=== PATIENT | female | born 1950 | race Caucasian/White ===

== ENCOUNTER 2017-08-25 16:10 | Emergency (ER) | payer OTHER ==
[2017-08-25] MEDS ORDERED: ONDANSETRON 4 MG/2 ML VIAL IVP ONE (17:05)
[2017-08-25] MEDS ORDERED: NS 1,000 ML IV ONE (17:05)
--- NOTE | 2017-08-25 17:12 | EDPHY ---
H & P Time Seen by Provider: 08/25/17 16:32 HPI/ROS: Chief complaint. Wants alcohol detox HPI. 67-year-old female presents emergency department requesting alcohol detox. She has been drinking for the last 2-4 weeks. Her last drink was at 3: 30 a.m. this afternoon. There were no medical issues or injuries causing her to want to stop drinking today. She feels that it is just time. She has a history of alcoholism. Previously when she has withdrawn from alcohol she has vomited. Her sister from alcohol poisoning or withdrawal. The patient has decreased appetite for the last several days. No abdominal pain. No chest discomfort or trouble breathing. No fever. ROS Constitutional. no fever/chills, no weakness Eyes. no problems with vision ENT. no sore throat, no nasal drainage Cardiovascular. no chest pain Respiratory. no shortness of breath, no cough Abdominal. Vomiting but no abdominal pain . no problems urinating MS. no calf pain/swelling, no neck/back pain, no joint pain Skin. no rash Lymph. no swollen glands Neuro. no headache, no dizziness, no difficulty walking or with speech Past Medical/Surgical History: Past medical history anemia, coronary artery disease, thymectomy, sleep disorder , [place] macroglobulinemia, chronic pain Social History: Single, nonsmoker, recent alcohol Smoking Status: Former smoker Physical Exam: General Appearance: Alert well-developed female mild distress. Vital signs significant for heart rate 108. Initial O2 saturation 88% on room air Eyes: Pupils equal and round no pallor or injection. ENT, Mouth: Mucous membranes are moist. Respiratory: There are no retractions, lungs are clear to auscultation. Cardiovascular: Regular rate and rhythm. Gastrointestinal: Abdomen is soft and nontender, no masses, bowel sounds normal. Neurological: Awake and alert, sensory and motor exams grossly normal. Skin: Warm and dry, no rashes. Musculoskeletal: Neck is supple nontender. Extremities symmetrical, full range of motion. Psychiatric: Patient is oriented X 3, there is no agitation. Constitutional: Initial Vital Signs Temperature (C) 37.0 C 08/25/17 16:17 Heart Rate 108 H 08/25/17 16:17 Respiratory Rate 18 08/25/17 16:17 Blood Pressure 131/83 H 08/25/17 16:17 O2 Sat (%) 88 L 08/25/17 16:17 O2 Delivery Mode Room Air Allergies/Adverse Reactions: Sulfa (Sulfonamide Antibiotics) Allergy (Intermediate, Verified 11/25/15 16:09) BLISTERS AND FLU LIKE SX prednisone [Prednisone] Allergy (Mild, Verified 11/25/15 16:09) FLU SX Home Medications: Medication Instructions Recorded Gabapentin 09/20/11 oxyCODONE IR [Oxycodone Ir (RX)] 5 - 10 mg PO 11/05/14 Ambien 11/20/15 Estradiol Transdermal Patch 11/03/16 Herbals/Supplements -Info Only 11/03/16 Lorazepam 11/03/16 Ms Contin 11/03/16 Soma 11/03/16 Progesterone 08/25/17 Medical Decision Making Procedures: IV normal saline. Alexis for nausea sow farm manager Fabienne will see the patient and discuss treatment options ED Course/Re-evaluation: On re-evaluation patient is stable. She and I discussed laboratory evaluation and treatment plan. The patient was given resources by patient wrap and the patient has been accepted for admission for medical detox in the [address] The patient agrees to this admission. She will be taken over by a non intoxicated friend. She is given Librium by mouth prior to discharge. I spoke to the medical detox intake and confirm that the patient has been accepted for admission Differential Diagnosis: Alcohol intoxication and patient is requesting medical detoxification. I considered electrolyte abnormality is an infection as well as pancreatitis. Tox screen also shows opiates and the patient has chronic pain and chronic opiate use - Data Points Laboratory Results: Laboratory Results 08/25/17 17:15 08/25/17 17:15 08/25/17 08/25/17 08/25/17 17:15 17:15 13:46 WBC 5.58 10^3/uL 10^3/uL (3.80-9.50) RBC 4.72 10^6/uL 10^6/uL (4.18-5.33) Hgb 15.1 g/dL g/dL (12.6-16.3) Hct 45.2 % % (38.0-47.0) MCV 95.8 fL fL (81.5-99.8) MCH 32.0 pg pg (27.9-34.1) MCHC 33.4 g/dL g/dL (32.4-36.7) RDW 13.0 % % (11.5-15.2) Plt Count 247 10^3/uL 10^3/uL (150-400) MPV 9.0 fL fL (8.7-11.7) Neut % (Auto) 63.5 % % (39.3-74.2) Lymph % (Auto) 23.8 % % (15.0-45.0) Love % (Auto) 11.1 % % (4.5-13.0) Eos % (Auto) 0.5 % L % (0.6-7.6) Baso % (Auto) 0.7 % % (0.3-1.7) Nucleat RBC Rel Count 0.0 % % (0.0-0.2) Absolute Neuts (auto) 3.54 10^3/uL 10^3/uL (1.70-6.50) Absolute Lymphs (auto) 1.33 10^3/uL 10^3/uL (1.00-3.00) Absolute Monos (auto) 0.62 10^3/uL 10^3/uL (0.30-0.80) Absolute Eos (auto) 0.03 10^3/uL 10^3/uL (0.03-0.40) Absolute Basos (auto) 0.04 10^3/uL 10^3/uL (0.02-0.10) Absolute Nucleated RBC 0.00 10^3/uL 10^3/uL (0-0.01) Immature Gran % 0.4 % % (0.0-1.1) Immature Gran # 0.02 10^3/uL 10^3/uL (0.00-0.10) Sodium 139 mEq/L mEq/L (134-144) Potassium 3.6 mEq/L mEq/L (3.5-5.2) Chloride 92 mEq/L L mEq/L (97-110) Carbon Dioxide 29 mEq/l mEq/l (22-31) Anion Gap 18 mEq/L H mEq/L (8-16) BUN 7 mg/dL mg/dL (7-23) Creatinine 0.6 mg/dL mg/dL (0.6-1.0) Estimated GFR > 60 Glucose 98 mg/dL mg/dL (70-100) Calcium 9.7 mg/dL mg/dL (8.5-10.4) Total Bilirubin 1.7 mg/dL H mg/dL (0.1-1.4) Conjugated Bilirubin 0.5 mg/dL mg/dL (0.0-0.5) Unconjugated Bilirubin 1.2 mg/dL H mg/dL (0.0-1.1) AST 81 IU/L H IU/L (14-46) ALT 38 IU/L IU/L (9-52) Alkaline Phosphatase 81 IU/L IU/L (38-126) Total Protein 8.9 g/dL H g/dL (6.3-8.2) Albumin 4.6 g/dL g/dL (3.5-5.0) Lipase 65 IU/L IU/L (23-300) Urine Opiates Screen NON-NEGATIVE H (NEGATIVE) Urine Barbiturates NEGATIVE (NEGATIVE) Ur Phencyclidine Scrn NEGATIVE (NEGATIVE) Ur Amphetamine Screen NEGATIVE (NEGATIVE) U Benzodiazepines Scrn NEGATIVE (NEGATIVE) Urine Cocaine Screen NEGATIVE (NEGATIVE) U Marijuana (THC) Screen NON-NEGATIVE H (NEGATIVE) Ethyl Alcohol 163 mg/dL H mg/dL (0-10) Medications Given: Discontinued Medications Sodium Chloride (Ns) 1,000 mls @ 0 mls/hr IV EDNOW ONE; Wide Open PRN Reason: Protocol Stop: 08/25/17 17:06 Last Admin: 08/25/17 17:23 Dose: 1,000 mls Ondansetron HCl (Zofran) 4 mg IVP EDNOW ONE Stop: 08/25/17 17:06 Last Admin: 08/25/17 17:23 Dose: 4 mg Departure - Departure Disposition: Home, Routine, Self-Care Clinical Impression: Alcoholic intoxication Qualifiers: Complication of substance-induced condition: uncomplicated Qualified Code(s): F10.920 - Alcohol use, unspecified with intoxication, uncomplicated Condition: Good Instructions: Alcohol Dependence (ED) Additional Instructions: Go to the medical detox unit at [address] [place] [id number] for admission. Return sooner for worsening problems. Referrals: NONE *PRIMARY CARE P,. [Primary Care Provider] - As per Instructions
[2017-08-25 17:24] LABS: % IMMATURE GRANULYOCYTES 0.4 % (0.0-1.1); ABSOLUTE IMMATURE GRANULOCYTES 0.02 10^3/uL (0.00-0.10); ADD DIFF? NO; ADD MORPH? NO; ADD SCAN? NO; ATYPICAL LYMPHOCYTE FLAG 10 (0-99); FRAGMENT RBC FLAG 0 (0-99); HEMATOCRIT 45.2 % (38.0-47.0); HEMOGLOBIN 15.1 g/dL (12.6-16.3); LEFT SHIFT FLG 0 (0-99); LIPEMIA HEMOLYSIS FLAG 80 (0-99); MEAN CELL HEMOGLOBIN CONCENTR. 33.4 g/dL (32.4-36.7); MEAN CELL VOLUME 95.8 fL (81.5-99.8); PLATELET CLUMPS FLAG 0 (0-99); PLATELET COUNT 247 10^3/uL (150-400); RED BLOOD CELL COUNT 4.72 10^6/uL (4.18-5.33)
[2017-08-25 17:40] LABS: ALANINE AMINOTRANSFERASE 38 IU/L (9-52); ALBUMIN 4.6 g/dL (3.5-5.0); ALKALINE PHOSPHATASE 81 IU/L (38-126); ANION GAP 18 mEq/L (8-16); ASPARTATE AMINOTRANSFERASE 81 IU/L (14-46); BILIRUBIN,TOTAL 1.7 mg/dL (0.1-1.4); BILIRUBIN-CONJUGATED 0.5 mg/dL (0.0-0.5); BILIRUBIN-UNCONJUGATED 1.2 mg/dL (0.0-1.1); CALCIUM 9.7 mg/dL (8.5-10.4); CARBON DIOXIDE 29 mEq/l (22-31); CHLORIDE 92 mEq/L (97-110); CREATININE 0.6 mg/dL (0.6-1.0); ETHANOL SERUM 163 mg/dL (0-10); GLOMERULAR FILTRATION RATE > 60; GLUCOSE 98 mg/dL (70-100); POTASSIUM 3.6 mEq/L (3.5-5.2); SODIUM 139 mEq/L (134-144); TOTAL PROTEIN 8.9 g/dL (6.3-8.2)
[2017-08-25] MEDS ORDERED: chlordiazePOXIDE 25 MG CAP PO ONE (18:55)
[2017-08-25 19:28] VITALS: BP 132/85; PULSE 93; RESP 20; TEMP 99.1; O2SAT 92
--- NOTE | 2017-08-26 09:40 | ASMTCMCOM ---
CM Note CM Note Notes: CM late entry: Met with patient shortly after arrival to ER. Patient requesting resources for medical detox from alcohol. I provided patient with several options to consider, explaining the process of reaching out to facilities to determine which may be the best fit for her. Patient decided on [facility] ([facility]) and their new medical detox program. Patient contacted their intake office and they were able to accept patient. I have spoken with [place] to confirm admission. Dr. Vazquez and Huey COLLINS updated on plan. RN to call [facility] with report when patient leaves the ER. Patient is accompanied by her sober friend Kody who is willing/able to take patient to detox when she is D/C from the ER Date Signed: 08/26/2017 09:40 AM Electronically Signed By:Fabienne Montana RN
== END 2017-08-25 19:30 | disposition home or self-care (01) ==
LOC: EEVIPCON 16:10
DX: F10.920 Alcohol use, unspecified with intoxication, uncomplicated (principal); I25.10 Atherosclerotic heart disease of native coronary artery without angina pectoris; E86.9 Volume depletion, unspecified; Z87.891 Personal history of nicotine dependence
CPT/HCPCS: 80305; 96374; G0480; J2405

== ENCOUNTER → 2017-11-12 | Outpatient (CLI) | payer OTHER | LOC: FIMAGING 08:28 | DX: S83.242A Other tear of medial meniscus, current injury, left knee, initial encounter (principal); M94.8X6 Other specified disorders of cartilage, lower leg; M71.22 Synovial cyst of popliteal space [Baker], left knee ==

== ENCOUNTER 2018-02-28 15:26 | Inpatient (IN) | payer OTHER ==
--- NOTE | 2018-02-28 15:28 | EDPHY ---
H & P Time Seen by Provider: 02/28/18 15:27 HPI/ROS: CHIEF COMPLAINT: Anxiety, alcohol intoxication/dependence HISTORY OF PRESENT ILLNESS: The patient presents the ED with symptoms of anxiety in the setting alcohol dependence and recent alcohol use. The patient is interested in getting resources regarding outpatient detox facilities. The patient was admitted to [facility] in August of 2017. The patient denies any suicidal or homicidal ideation. The patient does report mild dyspnea. She reports her last drink was immediately prior to arrival. The patient is brought by ambulance. She denies any acute abdominal pain, chest pain, fever or vomiting. REVIEW OF SYSTEMS: A comprehensive 10 point review of systems is otherwise negative aside from elements mentioned in the history of present illness. Source: Patient Exam Limitations: No limitations - Medical/Surgical History Hx Asthma: No Hx Chronic Respiratory Disease: Yes Hx Diabetes: No Hx Cardiac Disease: No Hx Renal Disease: No Hx Cirrhosis: No Hx Alcoholism: No Hx HIV/AIDS: No Hx Splenectomy or Spleen Trauma: No Other PMH: anemia, high amount of calcium in arteries, thymectomy, sleep disorder, waldenstrom's macroglobulinemia. chronic pain - Social History Smoking Status: Former smoker - Physical Exam Exam: General Appearance: Alert, no distress Eyes: Pupils equal and round no pallor or injection ENT, Mouth: Mucous membranes moist Respiratory: There are no retractions, lungs are clear to auscultation Cardiovascular: Regular rate and rhythm Gastrointestinal: Abdomen is soft and nontender, no masses, bowel sounds normal Neurological: A&O, normal motor function, normal sensory exam, normal cranial nerves Skin: Warm and dry, no rashes Musculoskeletal: Neck is supple nontender Extremities: symmetrical, full range of motion Constitutional: Initial Vital Signs Temperature (C) 36.7 C 02/28/18 15:27 Heart Rate 84 02/28/18 15:27 Respiratory Rate 16 02/28/18 15:27 Blood Pressure 133/88 H 02/28/18 15:27 O2 Sat (%) 98 02/28/18 15:27 O2 Delivery Mode Room Air O2 (L/minute) 2 Allergies/Adverse Reactions: Sulfa (Sulfonamide Antibiotics) Allergy (Intermediate, Verified 11/25/15 16:09) BLISTERS AND FLU LIKE SX prednisone [Prednisone] Allergy (Mild, Verified 11/25/15 16:09) FLU SX Home Medications: Medication Instructions Recorded Gabapentin 09/20/11 Ambien HS 11/20/15 Estradiol Transdermal Patch Q3D 11/03/16 Lorazepam PO PRN 11/03/16 Progesterone Q3D 08/25/17 Herbal Drugs DAILY 10/10/17 Morphine Er QID PRN 10/10/17 VITAMIN B COMPLEX DAILY 10/10/17 Medical Decision Making - Diagnostics EKG Interpretation: EKG: Complete interpretation has been separately recorded in the [place] archive. Summary impression: Sinus rhythm, rate 82 Imaging Results: Imaging Impressions Chest X-Ray 02/28/18 18:22 Impression: Poor inspiration. Nothing acute identified in this post CABG patient. Imaging: Discussed imaging studies w/ call center assistant Radiologist ED Course/Re-evaluation: The patient presents the emergency department with alcohol intoxication/ dependence with mild anxiety. She was given 1 mg of IV Ativan. The patient's EKG demonstrates no evidence of ischemia. I reviewed her past medical records including her ED visit from August 2017. The patient does not meet criteria for an M1 psychiatric hold. At her request I did contact [facility] who has informed me they are not open new patients for the next 2 weeks secondary to ongoing licensing issues. I re-evaluated the patient at 6:30 p.m.. I am informed by nursing staff that she was found taking her narcotic pain medications. She did developed some hypoxemia and require supplemental oxygen. The patient has refused going to the [facility]. Differential Diagnosis: Differential diagnosis considered includes alcohol intoxication, anxiety, arrhythmia, dehydration, metabolic abnormality - Data Points Laboratory Results: Laboratory Results 02/28/18 15:38 02/28/18 15:38 02/28/18 02/28/18 15:38 15:38 WBC 6.78 10^3/uL 10^3/uL (3.80-9.50) RBC 4.76 10^6/uL 10^6/uL (4.18-5.33) Hgb 15.8 g/dL g/dL (12.6-16.3) Hct 47.2 % H % (38.0-47.0) MCV 99.2 fL fL (81.5-99.8) MCH 33.2 pg pg (27.9-34.1) MCHC 33.5 g/dL g/dL (32.4-36.7) RDW 12.7 % % (11.5-15.2) Plt Count 235 10^3/uL 10^3/uL (150-400) MPV 9.2 fL fL (8.7-11.7) Neut % (Auto) 35.2 % L % (39.3-74.2) Lymph % (Auto) 54.1 % H % (15.0-45.0) [place] % (Auto) 9.1 % % (4.5-13.0) Eos % (Auto) 0.1 % L % (0.6-7.6) Baso % (Auto) 1.2 % % (0.3-1.7) Nucleat RBC Rel Count 0.0 % % (0.0-0.2) Absolute Neuts (auto) 2.38 10^3/uL 10^3/uL (1.70-6.50) Absolute Lymphs (auto) 3.67 10^3/uL H 10^3/uL (1.00-3.00) Absolute Monos (auto) 0.62 10^3/uL 10^3/uL (0.30-0.80) Absolute Eos (auto) 0.01 10^3/uL L 10^3/uL (0.03-0.40) Absolute Basos (auto) 0.08 10^3/uL 10^3/uL (0.02-0.10) Absolute Nucleated RBC 0.00 10^3/uL 10^3/uL (0-0.01) Immature Gran % 0.3 % % (0.0-1.1) Immature Gran # 0.02 10^3/uL 10^3/uL (0.00-0.10) Sodium 143 mEq/L mEq/L (135-145) Potassium 3.6 mEq/L mEq/L (3.5-5.2) Chloride 92 mEq/L L mEq/L (97-110) Carbon Dioxide 28 mEq/l mEq/l (22-31) Anion Gap 23 mEq/L H mEq/L (8-16) BUN 9 mg/dL mg/dL (7-23) Creatinine 0.7 mg/dL mg/dL (0.6-1.0) Estimated GFR > 60 Glucose 88 mg/dL mg/dL (70-100) Calcium 9.1 mg/dL mg/dL (8.5-10.4) Ethyl Alcohol 295 mg/dL H mg/dL (0-10) Medications Given: Discontinued Medications Lorazepam (Ativan Injection) 1 mg IVP EDNOW ONE Stop: 02/28/18 15:41 Last Admin: 02/28/18 15:48 Dose: 1 mg Departure - Departure Disposition: [facility] Clinical Impression: Alcoholic intoxication, Alcohol dependence, Hypoxemia Condition: Good
[2018-02-28] MEDS ORDERED: LORazepam 2 MG/ML INJ IVP ONE ×2 (15:40→20:41)
[2018-02-28 15:47] LABS: PLATELET COUNT 235 10^3/uL (150-400)
--- NOTE | 2018-02-28 15:50 | CPEKG ---
Heart Rate: 82 RR Interval: 732 P-R Interval: 173 QRSD Interval: 74 QT Interval: 388 QTC Interval: 453 P [place]: -3 QRS [place]: -22 T Wave [place]: 41 EKG Severity - OTHERWISE NORMAL ECG - EKG Impression: SINUS RHYTHM EKG Impression: BORDERLINE LEFT AXIS DEVIATION Electronically Signed By: Rufus Schneider 28-Feb-2018 18:53:50
[2018-02-28] MEDS ORDERED: ALBUTEROL 3 ML DEYVIAL IH ONE (20:43)
--- NOTE | 2018-02-28 21:03 | PDGENHP ---
History and Physical - Chief Complaint SOB - History of Present Illness 67 yo female with hx of ETOH dependency p/w with acute ETOH complaining of SOB x several days. She is a very poor historian and has provided different reports to me and the E.D. physician. She is telling me that she has felt very SOB x about one day. She denies fever, cough, chest pain. She is very anxious. She is requesting her pain meds. In the E.D. she requested resources for detox. She requested transfer to [facility]. A CXR was non revealing. She was noted be on RA. She was given Ativan and then was found to take some of her own chronic pain meds which she had with her and became hypoxic. Given her confusion, intoxication, and hypoxemia, she was felt unsafe to go home. She does not have a resting tremor. Other than hypoxemia, her VS are stable. She is very anxious. She denies abd pain, N/V/D PMH: anemia, high amount of calcium in arteries, thymectomy, sleep disorder, waldenstrom's macroglobulinemia. chronic pain, ETOH dependency PSHX: CABG SocHx: Former smoker, ETOH FmHx: NC Data: No leukocytosis CXR with no focal infiltrates, no e/o volume overload EKG with no acute ischemic changes History Information - Allergies/Home Medication List Allergies/Adverse Reactions: Sulfa (Sulfonamide Antibiotics) Allergy (Intermediate, Verified 11/25/15 16:09) BLISTERS AND FLU LIKE SX prednisone [Prednisone] Allergy (Mild, Verified 11/25/15 16:09) FLU SX Home Medications: Escitalopram Oxalate [Lexapro] 10 mg PO DAILY 02/28/18 [Last Taken 02/28/18] Estradiol [Vivelle-Dot 0.0375MG (*)] 0.0375 mg TD Q3D 02/28/18 [Last Taken 2 Weeks Ago ~02/14/18] Gabapentin [Neurontin 300 MG (*)] 600 mg PO HS 02/28/18 [Last Taken 02/27/18] Herbals/Supplements -Info Only 1 ea PO DAILY 02/28/18 [Last Taken 02/28/18] Morphine Sulfate [Morphine Sulfate ER] 15 mg PO HS 02/28/18 [Last Taken 02/27/18 ] Ondansetron Odt [Zofran Odt 4 mg (*)] 4 mg PO TID PRN 02/28/18 [Last Taken 02/27] Progesterone, Micronized [Progesterone] 100 mg PO HS 02/28/18 [Last Taken 17:00] ZOLPIDEM TARTRATE [Ambien CR 12.5 mg] 12.5 mg PO HS 02/28/18 [Last Taken ] oxyCODONE IR [Oxycodone Ir (*)] 10 mg PO TID PRN 02/28/18 [Last Taken 02/28/18 09:00] I have personally reviewed and updated: medical history, social history - Social History Smoking Status: Former smoker Review of Systems Review of Systems: ROS: 10pt was reviewed & negative except for what was stated in HPI & below Physical Exam Physical Exam: Temp Pulse Resp BP Pulse Ox 36.7 C 87 18 120/82 H 98 02/28/18 15:27 02/28/18 19:46 02/28/18 19:46 02/28/18 19:46 02/28/18 19:46 O2 (L/minute) 2 Constitutional: other (anxious), No no apparent distress Eyes: PERRL, EOMI Ears, Nose, Mouth, Throat: moist mucous membranes, hearing normal Cardiovascular: regular rate and rhythym, No JVD, No edema Respiratory: reduced air movement, respiratory distress, No no respiratory distress, No expiratory wheeze Gastrointestinal: normoactive bowel sounds, soft, non-tender abdomen Skin: warm Neurologic: No AAOx3 Psychiatric: anxious, No interacting appropriately Lymph, Heme, Immunologic: No petechiae Lab Data & Imaging Review 02/28/18 15:38 02/28/18 15:38 WBC 6.78 10^3/uL (3.80-9.50) 02/28/18 15:38 RBC 4.76 10^6/uL (4.18-5.33) 02/28/18 15:38 Hgb 15.8 g/dL (12.6-16.3) 02/28/18 15:38 Hct 47.2 % (38.0-47.0) H 02/28/18 15:38 MCV 99.2 fL (81.5-99.8) 02/28/18 15:38 MCH 33.2 pg (27.9-34.1) 02/28/18 15:38 MCHC 33.5 g/dL (32.4-36.7) 02/28/18 15:38 RDW 12.7 % (11.5-15.2) 02/28/18 15:38 Plt Count 235 10^3/uL (150-400) 02/28/18 15:38 MPV 9.2 fL (8.7-11.7) 02/28/18 15:38 Neut % (Auto) 35.2 % (39.3-74.2) L 02/28/18 15:38 Lymph % (Auto) 54.1 % (15.0-45.0) H 02/28/18 15:38 [place] % (Auto) 9.1 % (4.5-13.0) 02/28/18 15:38 Eos % (Auto) 0.1 % (0.6-7.6) L 02/28/18 15:38 Baso % (Auto) 1.2 % (0.3-1.7) 02/28/18 15:38 Nucleat RBC Rel Count 0.0 % (0.0-0.2) 02/28/18 15:38 Absolute Neuts (auto) 2.38 10^3/uL (1.70-6.50) 02/28/18 15:38 Absolute Lymphs (auto) 3.67 10^3/uL (1.00-3.00) H 02/28/18 15:38 Absolute Monos (auto) 0.62 10^3/uL (0.30-0.80) 02/28/18 15:38 Absolute Eos (auto) 0.01 10^3/uL (0.03-0.40) L 02/28/18 15:38 Absolute Basos (auto) 0.08 10^3/uL (0.02-0.10) 02/28/18 15:38 Absolute Nucleated RBC 0.00 10^3/uL (0-0.01) 02/28/18 15:38 Immature Gran % 0.3 % (0.0-1.1) 02/28/18 15:38 Immature Gran # 0.02 10^3/uL (0.00-0.10) 02/28/18 15:38 Sodium 143 mEq/L (135-145) 02/28/18 15:38 Potassium 3.6 mEq/L (3.5-5.2) 02/28/18 15:38 Chloride 92 mEq/L (97-110) L 02/28/18 15:38 Carbon Dioxide 28 mEq/l (22-31) 02/28/18 15:38 Anion Gap 23 mEq/L (8-16) H 02/28/18 15:38 BUN 9 mg/dL (7-23) 02/28/18 15:38 Creatinine 0.7 mg/dL (0.6-1.0) 02/28/18 15:38 Estimated GFR > 60 02/28/18 15:38 Glucose 88 mg/dL (70-100) 02/28/18 15:38 Calcium 9.1 mg/dL (8.5-10.4) 02/28/18 15:38 Ethyl Alcohol 295 mg/dL (0-10) H 02/28/18 15:38 Assessment & Plan Assessment: #Alcohol dependence (Acute) #Alcoholic intoxication (Acute) #Hypoxemia (Acute) #Agitation #chronic pain syndrome #Encephalopathy #Hx of CABG Given her current conditions, its very difficult to figure out what her underlying problem is. Currently her main c/o is resp and feeling that she cant breath. I will order a nebulizer treatment. Pending response I will consider scheduling and starting steroids. I dont see e/o infiltrate on CXR nor do I see e/o cardiac failure. I will check a D-Dimer and if elevated will check a CTA of the chest. She is very anxious and is likely working herself up. Although she is acutely intoxicated, I will give her a small amount of Ativan to assist with her severe anxiety. I do not think she is actively WD given her ETOH level. She does not have any cp and EKG is reassuring. I do not have any evidence to suggest ischemia or cardiac etiology I will hold her narcotics pain meds. These can be restarted once she begins clearing. I am also holding Ativan. She tells me that she is in pain but cannot verbalize where her pain is SCD's.
[2018-02-28] MEDS ORDERED: ACETAMINOPHEN 325 MG TAB PO PRN (21:12)
[2018-02-28] MEDS ORDERED: ONDANSETRON DISINTEGRATING 4 MG TAB PO PRN (21:12)
[2018-02-28] MEDS ORDERED: ONDANSETRON 4 MG/2 ML VIAL IVP PRN (21:12)
[2018-02-28] MEDS ORDERED: ALBUTEROL 3 ML DEYVIAL IH PRN (21:14)
[2018-02-28] MEDS: GABAPENTIN 300 MG CAP PO SCH (21:53)
[2018-02-28] MEDS: PROGESTERONE,MICR 100 MG CAP PO SCH (21:54)
[2018-02-28] MEDS: NS 1,000 ML IV SCH (22:01)
[2018-02-28] MEDS: ONDANSETRON DISINTEGRATING 4 MG TAB PO PRN (23:08)
[2018-03-01] MEDS: oxyCODONE IR 5 MG TAB PO PRN ×4 (00:49→20:38)
[2018-03-01] MEDS: LORazepam 2 MG/ML INJ IVP PRN ×7 (01:25→20:39)
[2018-03-01] MEDS: ONDANSETRON DISINTEGRATING 4 MG TAB PO PRN ×2 (04:12→18:24)
[2018-03-01] MEDS: ALBUTEROL 3 ML DEYVIAL IH SCH ×2 (05:21→11:16)
[2018-03-01 05:24] LABS: PLATELET COUNT 131 10^3/uL (150-400)
[2018-03-01] MEDS: FOLIC ACID 1 MG TAB PO SCH (08:04)
[2018-03-01] MEDS: MULTIVITAMINS 1 EACH TAB PO SCH (08:04)
[2018-03-01] MEDS: ESCITALOPRAM OXALATE 10 MG TAB PO SCH (08:07)
[2018-03-01] MEDS ORDERED: Herbals/Supplements -Info Only PO SCH (09:00)
[2018-03-01] MEDS: NS 1,000 ML IV SCH (11:49)
--- NOTE | 2018-03-01 14:12 | HOSPPROG ---
Hospitalist Progress Note Assessment/Plan: 67-year-old female presents emergency room complaints of shortness of breath. This is my 1st encounter, chart reviewed. # Alcohol dependence (Acute) Patient states she has been sober in the past She has been drinking since August #Alcoholic intoxication (Acute) Continue supportive care # alcohol withdrawal Continue CIWA Placed on high-dose thiamine Severe tremors Discussed with case management Patient states she would like to be sober #Hypoxemia (Acute) Etiology unclear Continue supportive oxygen Likely related atelectasis Continue to titrate oxygen refusing nebs #Agitation Resolved with Ativan #chronic pain syndrome Appears to be stable Patient not currently complaining of pain home meds on hold #Encephalopathy Likely secondary to the patient's alcohol consumption intoxication Continue supportive care #Hx of CABG Stable # history of PTSD Patient has an outpatient therapy #Dispo unclear change to inpt status will need further hospital therapy SCD's. Subjective: No specific complaints. Confused. Denies pain. Objective: Vital Signs Temp Pulse Resp BP Pulse Ox 37.1 C 91 14 124/75 H 87 L 03/01/18 11:46 03/01/18 11:46 03/01/18 11:46 03/01/18 11:46 03/01/18 11:46 Laboratory Results 03/01/18 04:59 03/01/18 04:59 02/28/18 03/01/18 03/02/18 05:59 05:59 05:59 Intake Total 799 200 Output Total 200 Balance 599 200 - Physical Exam Constitutional: appears nourished, not in pain, chronically ill appearing Eyes: PERRL, anicteric sclera, EOMI Ears, Nose, Mouth, Throat: moist mucous membranes, hearing normal, ears appear normal Cardiovascular: regular rate and rhythym, tachycardia, No JVD, No edema Respiratory: no respiratory distress, no rales or rhonchi, reduced air movement Gastrointestinal: No tenderness, No ascites, No guarding, No distension Skin: warm, normal color, No mottled Musculoskeletal: normal joint ROM, no joint effusions, generalized weakness, other (tremors) Psychiatric: flat affect, poor insight, poor judgement, poor memory ICD10 Worksheet Patient Problems: Problems Problem Status Onset Alcoholic intoxication Acute Alcohol dependence Acute Hypoxemia Acute
[2018-03-01] MEDS: THIAMINE HCL 500 MG in NS 100 ML IV SCH (14:23)
--- NOTE | 2018-03-01 16:24 | PDMN ---
Medical Necessity Medical necessity: Change to IP, as of 03/01/18, per APPLICATION ENGINEER; los >2 mn for ongoing management of alcohol intoxication/withdrawal, encephalopathy & acute hypoxemia of unclear etiology; admit for further monitoring, CIWA protocol, IVFs, high- dose IV Thiamine, supportive care, therapy & CM consult; hx CABG, PTSD, ETOH dependency; per progress note & order 03/01/18
--- NOTE | 2018-03-01 17:02 | ASMTCMCOM ---
CM Note CM Note Notes: Pt. is a 67-year-old woman admitted with shortness of breath. Hx. ETOHism (on CIWA protocol), anxiety, night O2 at home at baseline, former smoker, CABG, complex regional pain syndrome, and PTSD. Per hospitalist, Pt. wants to detox. Pt. has a hypnotherapist. Per RN, Pt. lives w/ a roomate. Reportedly has an ex- still in her life, but he is out of town. [place] friend of Pt and ex-, Paulino is emergency contact (on facesheet). PT and OT are consulted to assist w/ d/c planning. Per RN, Pt. is "forgetful". Pt. reportedly using a walker here, but not at baseline. SW/CAPO to follow for d/c POC. Date Signed: 03/01/2018 05:01 PM Electronically Signed By:Afsaneh Billings LCSW
[2018-03-01] MEDS: GABAPENTIN 300 MG CAP PO SCH (20:38)
[2018-03-01] MEDS: PROGESTERONE,MICR 100 MG CAP PO SCH (20:38)
[2018-03-01] MEDS ORDERED: morphINE SR 15 MG TAB PO SCH (21:00)
[2018-03-02] MEDS: NS 1,000 ML IV SCH (00:49)
[2018-03-02] MEDS: oxyCODONE IR 5 MG TAB PO PRN ×2 (00:50→20:33)
[2018-03-02] MEDS: LORazepam 2 MG/ML INJ IVP PRN ×5 (00:51→15:36)
[2018-03-02] MEDS: MULTIVITAMINS 1 EACH TAB PO SCH (10:10)
[2018-03-02] MEDS: ONDANSETRON DISINTEGRATING 4 MG TAB PO PRN (10:10)
[2018-03-02] MEDS: FOLIC ACID 1 MG TAB PO SCH (10:10)
[2018-03-02] MEDS: THIAMINE HCL 500 MG in NS 100 ML IV SCH (10:12)
[2018-03-02] MEDS: ESCITALOPRAM OXALATE 10 MG TAB PO SCH (10:12)
--- NOTE | 2018-03-02 12:43 | HOSPPROG ---
Hospitalist Progress Note Assessment/Plan: 67-year-old female presents emergency room complaints of shortness of breath. # Alcohol dependence (Acute) Patient states she has been sober in the past She has been drinking since August reviewed with CM #Alcoholic intoxication (Acute) Continue supportive care # alcohol withdrawal Continue CIWA Placed on high-dose thiamine tremors better Discussed with case management Patient states she would like to be sober #Hypoxemia (Acute) Etiology unclear Continue supportive oxygen Likely related atelectasis Continue to titrate oxygen refusing nebs #Agitation Resolved with Ativan #chronic pain syndrome Appears to be stable Patient not currently complaining of pain home meds on hold #Encephalopathy Likely secondary to the patient's alcohol consumption intoxication Continue supportive care #Hx of CABG Stable # history of PTSD Patient has an outpatient therapy #Dispo unclear will need further hospital therapy PT/OT SCD's. Subjective: Feeling very weak and tired. No pain. Some confusion. Objective: Vital Signs Temp Pulse Resp BP Pulse Ox 37.4 C 95 16 103/68 89 L 03/02/18 11:41 03/02/18 11:41 03/02/18 11:41 03/02/18 11:41 03/02/18 11:41 Laboratory Results 03/01/18 04:59 03/01/18 04:59 03/01/18 03/02/18 03/03/18 05:59 05:59 05:59 Intake Total 549 2100 700 Output Total 048 823 5266 Balance 349 1400 -400 - Physical Exam Constitutional: appears nourished, not in pain, chronically ill appearing Eyes: PERRL, anicteric sclera, EOMI Ears, Nose, Mouth, Throat: moist mucous membranes, hearing normal, ears appear normal Cardiovascular: regular rate and rhythym, No JVD, No tachycardia Respiratory: no respiratory distress, no rales or rhonchi, reduced air movement Gastrointestinal: No tenderness, No ascites, No guarding Skin: warm, normal color, No mottled Musculoskeletal: normal joint ROM, no joint effusions, generalized weakness Neurologic: No AAOx3 Psychiatric: not anxious, not encephalopathic, poor insight, poor judgement, poor memory, No thought process linear ICD10 Worksheet Patient Problems: Problems Problem Status Onset Alcoholic intoxication Acute Alcohol dependence Acute Hypoxemia Acute
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
[2018-03-02] MEDS: ENOXAPARIN 40 MG/0.4 ML SYR SC SCH (18:33)
[2018-03-02] MEDS: GABAPENTIN 300 MG CAP PO SCH (20:25)
[2018-03-02] MEDS: PROGESTERONE,MICR 100 MG CAP PO SCH (20:26)
[2018-03-03] MEDS: oxyCODONE IR 5 MG TAB PO PRN (04:30)
[2018-03-03] MEDS ORDERED: ESTRADIOL VIVELLE 0.0375 MG PATCH TD SCH (08:00)
[2018-03-03] MEDS ORDERED: PROTOCOL POTASSIUM 1 DOSE MISC PRN (08:27)
--- NOTE | 2018-03-03 08:29 | HOSPPROG ---
Hospitalist Progress Note Assessment/Plan: 67-year-old female presents emergency room complaints of shortness of breath. Today is my 1st encounter with the patient. Chart reviewed. # Alcohol dependence (Acute) with associated withdrawal Patient states she has been sober in the past She has been drinking since August reviewed with CM thiamine, folic acid # alcoholic hepatitis Reviewed her previous labs and liver function test are higher than her baseline Will check a hepatitis panel check an INR and lft's in a.m. #thrombocytosis likely from alcohol use #Hypoxemia (Acute) has an elevated d dimer says she is not short of breath during my evaluation and is on room air will have a low threshold to get a CTA if she needs O2 #Hypokalemia added protocol #Agitation Resolved with Ativan #chronic pain syndrome, regional pain syndrome she is requesting her pain medications, says she takes OxyContin scheduled asking for long acting oral morphine, but requesting Ativan. Explained to her the long acting is on hold due to concern of respiratory depression #Encephalopathy Likely secondary to the patient's alcohol consumption intoxication resolved #Hx of CABG Stable # history of PTSD Patient has an outpatient therapist she sees #Dispo -pending, patient has very little support, very anxious, requesting Ativan and her pain medications. Will ask Pinky Atkinson to see. I am concerned she will relapse as soon as she is discharged. Subjective: Cat says she has pain in her left knee, left foot. Objective: Vital Signs Temp Pulse Resp BP Pulse Ox 36.9 C 98 16 113/65 92 03/03/18 07:29 03/03/18 07:29 03/03/18 07:29 03/03/18 07:29 03/03/18 07:29 Laboratory Results 03/03/18 05:00 03/03/18 05:00 03/02/18 03/03/18 03/04/18 05:59 05:59 05:59 Intake Total 2100 700 Output Total 700 1500 Balance 1400 -800 - Physical Exam Constitutional: appears nourished, chronically ill appearing, No not in pain Eyes: PERRL Ears, Nose, Mouth, Throat: hearing normal Cardiovascular: regular rate and rhythym Respiratory: no respiratory distress Gastrointestinal: normoactive bowel sounds Skin: warm Musculoskeletal: generalized weakness Psychiatric: anxious, poor insight, poor judgement ICD10 Worksheet Patient Problems: Problems Problem Status Onset Alcohol dependence Acute Alcoholic intoxication Acute Hypoxemia Acute
[2018-03-03] MEDS ORDERED: oxyCODONE IR 5 MG TAB PO ONE (09:30)
[2018-03-03] MEDS: ONDANSETRON DISINTEGRATING 4 MG TAB PO PRN (09:59)
[2018-03-03] MEDS: MULTIVITAMINS 1 EACH TAB PO SCH (10:02)
[2018-03-03] MEDS: ENOXAPARIN 40 MG/0.4 ML SYR SC SCH (10:02)
[2018-03-03] MEDS: ESCITALOPRAM OXALATE 10 MG TAB PO SCH (10:02)
[2018-03-03] MEDS: FOLIC ACID 1 MG TAB PO SCH (10:02)
[2018-03-03] MEDS ORDERED: POTASSIUM CL 10 MEQ TAB PO ONE ×2 (10:17→22:07)
--- NOTE | 2018-03-03 10:29 | ASMTCMCOM ---
CM Note CM Note Notes: Today hospitalist concerned about Pt's seeming drug seeking behavior and mental health stability. Hospitalist plans to order consult for behavioral health RN Pinky Atkinson for Monday. CM to assist in facilitation of psychiatric assessment. Possible d/c to a behavioral health/substance setting such as [facility], [facility] Behavioral Health unit, or [facility] Unit. Note: [facility] called to refuse admission for a home PT due to Pt. not having a current PCP. TBD Date Signed: 03/03/2018 10:29 AM Electronically Signed By:Afsaneh Billings LCSW
[2018-03-03] MEDS: LORazepam 1 MG TAB PO PRN ×3 (12:29→22:25)
[2018-03-03] MEDS: oxyCODONE IR 5 MG TAB PO SCH ×2 (16:26→21:55)
[2018-03-03] MEDS: GABAPENTIN 300 MG CAP PO SCH (21:55)
[2018-03-03] MEDS: PROGESTERONE,MICR 100 MG CAP PO SCH (22:24)
[2018-03-04] MEDS: THIAMINE HCL 100 MG TAB PO SCH ×2 (02:06→10:16)
[2018-03-04] MEDS: LORazepam 1 MG TAB PO PRN ×2 (02:07→10:35)
[2018-03-04] MEDS ORDERED: CYCLOBENZAPRINE 10 MG TAB PO ONE (03:11)
[2018-03-04 04:59] LABS: PLATELET COUNT 130 10^3/uL (150-400)
[2018-03-04 05:08] LABS: INR 1.02 (0.83-1.16); PROTIME(PATIENT) 13.6 SEC (12.0-15.0)
[2018-03-04 07:30] VITALS: BP 107/68
[2018-03-04] MEDS: ESCITALOPRAM OXALATE 10 MG TAB PO SCH (09:04)
[2018-03-04] MEDS: oxyCODONE IR 5 MG TAB PO SCH (09:04)
[2018-03-04] MEDS: FOLIC ACID 1 MG TAB PO SCH (10:16)
[2018-03-04] MEDS: MULTIVITAMINS 1 EACH TAB PO SCH (10:16)
[2018-03-04] MEDS: ENOXAPARIN 40 MG/0.4 ML SYR SC SCH (11:49)
--- NOTE | 2018-03-04 11:49 | HOSPPROG ---
Hospitalist Progress Note Assessment/Plan: 67-year-old female presents emergency room complaints of shortness of breath. # Alcohol dependence (Acute) with associated withdrawal Patient states she has been sober in the past she states she has a room mate who will give her support. thiamine, folic acid # alcoholic hepatitis Reviewed her previous labs and liver function test are higher than her baseline hepatitis panel is pending lft's a bit better today #thrombocytosis likely from alcohol use #Hypoxemia (Acute) had an elevated d dimer no longer short of breath, not tachycardic #Hypokalemia added protocol #Agitation Resolved with Ativan #chronic pain syndrome, regional pain syndrome she is requesting her pain medications, says she takes OxyContin scheduled asking for long acting oral morphine, but requesting Ativan. Explained to her the long acting is on hold due to concern of respiratory depression #Encephalopathy Likely secondary to the patient's alcohol consumption intoxication resolved #Hx of CABG Stable # history of PTSD Patient has an outpatient therapist she sees #Dispo dc today, patient is decisional and would like to go home. Offered her resources to get help or possibility of IP treatment programs, she wishes to leave. Have asked ST to evaluate her cognitively prior to dc if possible. Have asked CM to see prior to dc to offer other support. Subjective: Cat is feeling well, wants to go home. Objective: Vital Signs Temp Pulse Resp BP Pulse Ox 36.4 C 98 16 107/68 93 03/04/18 07:29 03/04/18 07:29 03/04/18 07:29 03/04/18 07:29 03/04/18 07:29 Microbiology 03/03/18 23:55 Respiratory Panel (PCR) - Final Nasal, Sinus - Swab No Organism Detected Laboratory Results 03/04/18 04:40 03/04/18 04:40 03/03/18 03/04/18 03/05/18 05:59 05:59 05:59 Intake Total 700 Output Total 1500 201 Balance -800 -201 PT 13.6 SEC (12.0-15.0) 03/04/18 04:40 INR 1.02 (0.83-1.16) 03/04/18 04:40 - Physical Exam Constitutional: chronically ill appearing Eyes: PERRL Ears, Nose, Mouth, Throat: hearing normal Cardiovascular: regular rate and rhythym Respiratory: no respiratory distress Skin: warm Musculoskeletal: generalized weakness Neurologic: AAOx3 Psychiatric: interacting appropriately, not encephalopathic ICD10 Worksheet Patient Problems: Problems Problem Status Onset Alcohol dependence Acute Alcoholic intoxication Acute Hypoxemia Acute
--- NOTE | 2018-03-04 13:13 | ASMTCMCOM ---
CM Note CM Note Notes: CM met with patient, discharge is likely scheduled for today after Speech Therapy eval.uation Patient is eager to go home. Patient is missing glasses in room, we looked for them together and were unsuccessful in finding them. CM inquired about supports in place after discharge, she shares her roommate Jacqui ([phone]) also works for her and will 'not let alcohol in home'. She shared Jacqui and her got some board games to occupy time. CM asked patient about her feelings around detoxing during this admission and asked what her goal is around drinking and she states it is to not drink alcohol anymore. Cat shares she is connected to a Psychologist/Hypnotheraist that she has been seeing for about month for PTSD and can support her goal to no longer drink alcohol. She does not have a PCP and states there is a company/doctor she is planning on calling to connect to for primary care, is connected to an bank advisor, and mentions she is followed by Oncology who she checks in with every 3 months or so for a rare cancer she is not receiving treatment for at this time. Patient states she is open to info for alcohol recovery support but is not interested in 12 step. CM called roommate Jacqui, she states she does not drink and there wouldn't be a reason for alcohol in the home. She mentioned the board games as a tool to help occupy Cat's time. CM mentioned connecting to a PCP could be a good support for her physical health. Jacqui will waste picker patient this afternoon. CM gave patient 'Live Better' brochure, list of providers that accept Medicare and address PTSD and Substance use (per [employer]), and [facility] womens' services info. CM available for CM support if further needs arise. D/C Plan: Discharge home independently today. Date Signed: 03/04/2018 01:12 PM Electronically Signed By:Maggie Phelps
--- NOTE | 2018-03-04 13:54 | GDS ---
[f rep st] DISCHARGE SUMMARY DISCHARGE DIAGNOSES: 1. Alcoholic dependence with withdrawal. 2. Alcoholic hepatitis. 3. Thrombocytopenia. 4. Hypoxemia. 5. Hypokalemia. 6. Agitation. 7. Chronic pain syndrome with associated regional pain syndrome. 8. Acute encephalopathy. 9. Posttraumatic stress disorder. HISTORY: Briefly, the patient is a 67-year-old female who presented initially to the emergency room with shortness of breath for several days. She was also withdrawing from alcohol. She denied any fever, cough, or chest pain. In the emergency room, she requested resources for detoxification. She had a chest x- ray that was performed which was nonrevealing. She was admitted for her alcoholic intoxication and was given supportive treatment with a [facility] protocol. She improved through her stay. Of note, she did have an elevated D-dimer. She has a history of an elevated D-dimer. Her symptoms resolved. She is no longer short of breath. HOSPITAL COURSE PER PROBLEM: 1. Alcohol dependence with withdrawal. She was treated with thiamine, folic acid, and the CIWA protocol. Her symptoms have since resolved. 2. Alcoholic hepatitis. Recommending that she get repeat liver function tests in the next 2 weeks. 3. Thrombocytopenia. This is from alcohol use. 4. Acute hypoxemia. She is no longer short of breath. She is stable on room air. 6. Agitation, resolved with Ativan. 7. Chronic pain syndrome with associated regional pain syndrome. Resumed her home medications. 8. Acute encephalopathy, secondary to alcohol intoxication, has since resolved. 9. History of CABG, stable. 10. History of PTSD. She says she has a therapist that she works with in the outpatient setting. PENDING LABS AND TESTS: None. CONDITION AT DISCHARGE: Stable. VITAL SIGNS: Blood pressure is 107/68, heart rate is 98, respiratory rate is 16 , O2 saturation on room air 93%, temperature is 36.4 Celsius. MEDICATIONS AT DISCHARGE: Please see the EMR. DISCHARGE INSTRUCTIONS: 1. Recommending she stop all alcohol use. 2. To get repeat liver enzymes in 2 weeks. 3. Recommending that she get support with Alcoholics Anonymous. I offered the patient possible placement of inpatient care to help with her alcohol dependence. She declines this at this time and would prefer to go home. Greater than 30 minutes discharging and coordinating her care. /[id number]/MODL MTDD
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
[2018-03-05 04:16] LABS: HEPATITIS B SURFACE ANTIGEN NEGATIVE (NEGATIVE)
[2018-03-05 04:21] LABS: HEPATITIS A ANTIBODY IGM (BCH) NEGATIVE (NEGATIVE); HEPATITIS B CORE AB IGM NEGATIVE (NEGATIVE)
[2018-03-05 04:33] LABS: HEPATITIS C ANTIBODY TOTAL NEGATIVE (NEGATIVE)
== END 2018-03-04 14:45 | disposition home or self-care (01) | DRG 897 ==
LOC: EDUNIT# → F3E 20:00 → OBSVTOIN 20:44
PROVIDERS: ADMIT Family Medicine; ATTEND Family Medicine
DX: F10.239 Alcohol dependence with withdrawal, unspecified (principal); G31.2 Degeneration of nervous system due to alcohol; F10.280 Alcohol dependence with alcohol-induced anxiety disorder; F10.229 Alcohol dependence with intoxication, unspecified; Y90.8 Blood alcohol level of 240 mg/100 ml or more; G89.29 Other chronic pain; K70.10 Alcoholic hepatitis without ascites; D69.6 Thrombocytopenia, unspecified; R09.02 Hypoxemia; E87.6 Hypokalemia; R45.1 Restlessness and agitation; F43.10 Post-traumatic stress disorder, unspecified; Z95.1 Presence of aortocoronary bypass graft
CPT/HCPCS: 92523-GN; 96374; 97116-GP; 97161-GP; G0378; G0472; G0480; G8978-GP-CJ; G8979-GP-CI; G9165-GN-CI; G9166-GN-CI; G9167-GN-CI; J1650; J2060; J2270; J3411; J7613

== ENCOUNTER → 2019-04-25 | Outpatient (CLI) | payer OTHER | LOC: FIMAGING 10:36 ==